=== PATIENT | female | born 1965 | race African-American/Black ===

== ENCOUNTER 2019-08-14 13:44 | Emergency (ER) | payer OTHER ==
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
[2019-08-14 17:26] LABS: ABS Eosinophils 0.3 10^3/ul (0-0.6); ABS Lymphocytes 1.3 10^3/ul (1.0-4.8); ABS Monocytes 0.8 10^3/ul (0-0.8); ABS Neutrophils 5.5 10^3/ul (1.5-7.7); Eosinophil % 3.3 %; Hematocrit 28 % (35-47); Hemoglobin 9.4 g/dL (12.0-16.0); Lymphocyte % 16.3 %; Mean Corpuscular HGB Conc 34 g/dL (31-36); Mean Corpuscular Hemoglobin 31 pg (27-31); Mean Corpuscular Volume 92 fL (80-97); Mean Platelet Volume 7.3 fL (7.4-10.4); Nucleated Red Blood Cells % 0.1; Platelet Count 337 10^3/uL (150-450); Red Blood Count 3.05 10^6 /uL (3.70-4.87); Red Cell Distribution Width 14 % (10-15); White Blood Count 7.8 10^3/uL (3.5-10.8)
[2019-08-14 17:32] LABS: INR 0.98 (0.82-1.09)
[2019-08-14 17:59] LABS: Albumin 3.9 g/dL (3.2-5.2); Total Bilirubin 0.3 mg/dL (0.2-1.0)
[2019-08-14 18:05] LABS: Albumin/Globulin Ratio 1.5 (1-3); EGFR African American 98.2 (>60); EGFR Non-African American 81.1 (>60); Globulin 2.6 g/dL (2-4); Total Protein 6.5 g/dL (6.4-8.9)
--- NOTE | 2019-08-14 19:17 | ED ---
Lower Extremity - HPI Summary HPI Summary: 53 year old female presents with bilaterally swelling of legs for the past couple days. She states her left leg is more swollen and more painful. She has been using compression socks on her legs. Denies any injury. She denies any numbness or tingling. No chest pain or shortness of breath. No family history of blood clots. She is a resident of [facility]. She denies any recent travel. she has bruising that she noticed of the area. - History of Current Complaint Chief Complaint: EDExtremityLower Stated Complaint: SWOLLEN LEGS PER PT Time Seen by Provider: 08/14/19 16:56 Pain Intensity: 8 - Allergies/Home Medications Allergies/Adverse Reactions: Allergies Allergy/AdvReac Type Severity Reaction Status Date / Time Penicillins Allergy Hives Verified 08/14/19 13:53 Home Medications: Home Medications Buprenorp/Nalox 8-2 MG FILM [Suboxone 8 mg-2 mg Sl Film] 2 unit PO DAILY [History Confirmed 08/14/19] Doxepin HCl 100 mg PO QPM 08/14/19 [History Confirmed 08/14/19] Escitalopram Oxalate [Lexapro 10 mg] 10 mg PO DAILY 08/14/19 [History Confirmed 08/14/19] Fluticasone NASAL SPRAY 50MCG* [Flonase NASAL SPRAY 50MCG*] 2 spray BOTH NARES DAILY 08/14/19 [History Confirmed 08/14/19] Gabapentin 400 mg PO TID 08/14/19 [History Confirmed 08/14/19] Lisinopril [Zestril] 10 mg PO DAILY 08/14/19 [History Confirmed 08/14/19] Melatonin 5 mg PO QPM PRN 08/14/19 [History Confirmed 08/14/19] Mirtazapine TAB* [Remeron TAB*] 30 mg PO BEDTIME 08/14/19 [History Confirmed ] Naproxen [Naproxen 500 mg tab] 500 mg PO BID PRN 08/14/19 [History Confirmed ] Nicotine GUM* 4MG FRUIT FLAVOR [Nicotine GUM*] 4 mg PO DAILY PRN 08/14/19 [ History Confirmed 08/14/19] Risperidone [Risperdal] 1 mg PO BEDTIME 08/14/19 [History Confirmed 08/14/19] hydrOXYzine HCL [Hydroxyzine HCl] 50 mg PO TID PRN 08/14/19 [History Confirmed 08/14/19] PMH/Surg Hx/FS Hx/Imm Hx Endocrine/Hematology History: Denies: Hx Anticoagulant Therapy Respiratory History: Denies: Hx Asthma Infectious Disease History: No Infectious Disease History: Denies: Traveled Outside the [place] in Last 30 Days - Family History Known Family History: Negative: Blood Disorder - Social History Alcohol Use: None Substance Use Type: Reports: None Smoking Status (MU): Former Smoker Review of Systems Negative: Fever Negative: Chest Pain Negative: Shortness Of Breath Positive: Edema - bilateral legs Positive: Bruising All Other Systems Reviewed And Are Negative: Yes Physical Exam Triage Information Reviewed: Yes Vital Signs On Initial Exam: Initial Vitals Temp Pulse Resp BP Pulse Ox 98.3 F 102 19 123/75 95 08/14/19 13:46 08/14/19 13:46 08/14/19 13:46 08/14/19 13:46 08/14/19 13:46 Vital Signs Reviewed: Yes Appearance: Positive: Well-Appearing Skin: Positive: Warm, Dry Head/Face: Positive: Normal Head/Face Inspection Eyes: Positive: Normal, Conjunctiva Clear ENT: Positive: Pharynx normal Respiratory/Lung Sounds: Positive: Clear to Auscultation, Breath Sounds Present Cardiovascular: Positive: Normal, RRR Musculoskeletal: Positive: Strength/ROM Intact - legs, Edema Left, Edema Right, Other - good pulses, trace bruising noted to legs, tenderness entire bilateral legs Neurological: Positive: Normal Psychiatric: Positive: Normal Procedures - Sedation Patient Received Moderate/Deep Sedation with Procedure: No Diagnostics - Vital Signs Vital Signs Temp Pulse Resp BP Pulse Ox 08/14/19 19:05 120/68 08/14/19 18:14 90 93 08/14/19 18:06 89 117/74 93 08/14/19 17:36 90 93 08/14/19 16:56 94 95 08/14/19 16:03 98.1 F 100 16 122/68 92 08/14/19 15:39 98.3 F 90 18 106/79 93 08/14/19 13:46 98.3 F 102 19 123/75 95 - Laboratory Lab Results: Lab Results 02/16/20 02/16/20 02/16/20 Range/Units 17:20 17:20 17:20 WBC 7.8 (3.5-10.8) 10^3/uL RBC 3.05 L (3.70-4.87) 10^6 /uL Hgb 9.4 L (12.0-16.0) g/dL Hct 28 L (35-47) % MCV 92 (80-97) fL MCH 31 (27-31) pg MCHC 34 (31-36) g/dL RDW 14 (10-15) % Plt Count 337 (150-450) 10^3/uL MPV 7.3 L (7.4-10.4) fL Neut % (Auto) 69.9 % Lymph % (Auto) 16.3 % Metcalfe % (Auto) 10.0 % Eos % (Auto) 3.3 % Baso % (Auto) 0.5 % Absolute Neuts (auto) 5.5 (1.5-7.7) 10^3/ul Absolute Lymphs (auto) 1.3 (1.0-4.8) 10^3/ul Absolute Monos (auto) 0.8 (0-0.8) 10^3/ul Absolute Eos (auto) 0.3 (0-0.6) 10^3/ul Absolute Basos (auto) 0.0 (0-0.2) 10^3/ul Absolute Nucleated RBC 0.0 10^3/ul Nucleated RBC % 0.1 INR (Anticoag Therapy) 0.98 (0.82-1.09) Sodium 140 (135-145) mmol/L Potassium 4.0 (3.5-5.0) mmol/L Chloride 106 (101-111) mmol/L Carbon Dioxide 28 (22-32) mmol/L Anion Gap 6 (2-11) mmol/L BUN 12 (6-24) mg/dL Creatinine 0.75 (0.51-0.95) mg/dL Est GFR ( Amer) 98.2 (>60) Est GFR (Non-Af Amer) 81.1 (>60) BUN/Creatinine Ratio 16.0 (8-20) Glucose 89 (70-100) mg/dL Calcium 9.0 (8.6-10.3) mg/dL Total Bilirubin 0.30 (0.2-1.0) mg/dL AST 19 (13-39) U/L ALT 17 (7-52) U/L Alkaline Phosphatase 83 (34-104) U/L B-Natriuretic Peptide (<=100) pg/mL Total Protein 6.5 (6.4-8.9) g/dL Albumin 3.9 (3.2-5.2) g/dL Globulin 2.6 (2-4) g/dL Albumin/Globulin Ratio 1.5 (1-3) /16 Range/Units 17:20 WBC (3.5-10.8) 10^3/uL RBC (3.70-4.87) 10^6 /uL Hgb (12.0-16.0) g/dL Hct (35-47) % MCV (80-97) fL MCH (27-31) pg MCHC (31-36) g/dL RDW (10-15) % Plt Count (150-450) 10^3/uL MPV (7.4-10.4) fL Neut % (Auto) % Lymph % (Auto) % Metcalfe % (Auto) % Eos % (Auto) % Baso % (Auto) % Absolute Neuts (auto) (1.5-7.7) 10^3/ul Absolute Lymphs (auto) (1.0-4.8) 10^3/ul Absolute Monos (auto) (0-0.8) 10^3/ul Absolute Eos (auto) (0-0.6) 10^3/ul Absolute Basos (auto) (0-0.2) 10^3/ul Absolute Nucleated RBC 10^3/ul Nucleated RBC % INR (Anticoag Therapy) (0.82-1.09) Sodium (135-145) mmol/L Potassium (3.5-5.0) mmol/L Chloride (101-111) mmol/L Carbon Dioxide (22-32) mmol/L Anion Gap (2-11) mmol/L BUN (6-24) mg/dL Creatinine (0.51-0.95) mg/dL Est GFR ( Amer) (>60) Est GFR (Non-Af Amer) (>60) BUN/Creatinine Ratio (8-20) Glucose (70-100) mg/dL Calcium (8.6-10.3) mg/dL Total Bilirubin (0.2-1.0) mg/dL AST (13-39) U/L ALT (7-52) U/L Alkaline Phosphatase (34-104) U/L B-Natriuretic Peptide 23 (<=100) pg/mL Total Protein (6.4-8.9) g/dL Albumin (3.2-5.2) g/dL Globulin (2-4) g/dL Albumin/Globulin Ratio (1-3) Result Diagrams: 08/14/19 17:20 08/14/19 17:20 Lab Statement: Any lab studies that have been ordered have been reviewed, and results considered in the medical decision making process. - Ultrasound No standard instances Ultrasound Interpretation Completed By: Radiologist Summary of Ultrasound Findings: IMPRESSION: 1. No evidence of deep vein thrombosis. 2. Pulsatile venous flow of uncertain clinical significance. Lower Extremity Course/Dx - Course Course Of Treatment: 53 year old female presents with bilaterally swelling of legs for the past couple days. She states her left leg is more swollen and more painful. She has been using compression socks on her legs. Denies any injury. She denies any numbness or tingling. No chest pain or shortness of breath. No family history of blood clots. She is a resident of [facility]. She denies any recent travel. she has bruising that she noticed of the area. On exam has edema noted bilaterally. has trace ecchymosis to leg. Ultrasound of left leg shows no DVT. hemoglobin is 9.4. wbc normal. will start on iron. will have follow up with primary. Patient understands and agrees with the plan. - Diagnoses Differential Diagnosis/HQI/PQRI: Positive: DVT, Sprain, Strain Provider Diagnoses: Edema of both legs, Anemia Discharge ED - Sign-Out/Discharge Documenting (check all that apply): Patient Departure - Discharge Plan Condition: Good Disposition: HOME Prescriptions: Ferrous Fumarate 89 mg PO DAILY #10 tablet Patient Education Materials: Leg Edema (ED) Referrals: No Primary Care Phys,NOPCP [Primary Care Provider] - Additional Instructions: elevate, ice use compression socks take iron daily take tyenlol every 6 hours for pain follow up with primary within 5 days can use elevator instead of stairs Return to ED if develop any new or worsening symptoms - Billing Disposition and Condition Condition: GOOD Disposition: Home - Attestation Statements Provider Attestation: I was available for consultation for this patient. I did not evaluate the patient or participate in any medical decision making or disposition decisions unless I am specifically named in the chart as having consulted on the patient. If I have consulted on the patient, please see my own ED note on the patient encounter. Shanthi Gomes MD
[2019-08-14 20:08] VITALS: BP 114/85
== END 2019-08-14 20:07 | disposition home or self-care (01) ==
LOC: ED 13:44
DX: R60.0 Localized edema (principal); D64.9 Anemia, unspecified; Z87.891 Personal history of nicotine dependence; Z79.899 Other long term (current) drug therapy; Z88.0 Allergy status to penicillin
CPT/HCPCS: 36415; 80053; 83880; 85025; 85610; 99283

== ENCOUNTER 2019-08-21 11:24 | Emergency (ER) | payer OTHER ==
--- NOTE | 2019-08-21 12:09 | ED ---
Lower Extremity - HPI Summary HPI Summary: 53 y/o female presented to [facility] for bilat LE edema present for at least a week. She was seen 7 days ago in the ER for similar sx and since then has not seen improvement. At the time, she was told she was anemic and had no blood clots according to [place]. Today she woke up with ankle pain and took about 15 minutes to get up. She claims to have gained about 7lbs in fluid. Pt notes hx of asthma and HTN, but denies hx of liver issues, kidney issues, or diabetes. She takes lisinopril and suboxone, and is in rehab for heroin use. Home Medications Medication Instructions Recorded Confirmed Type Buprenorp/Nalox 8-2 MG FILM 2 unit PO DAILY 08/14/19 08/14/19 History [Suboxone 8 mg-2 mg Sl Film] Doxepin HCl 100 mg PO QPM 08/14/19 08/14/19 History Escitalopram Oxalate [Lexapro 10 10 mg PO DAILY 08/14/19 08/14/19 History mg] Ferrous Fumarate 89 mg PO DAILY #10 tablet 08/14/19 Rx Fluticasone NASAL SPRAY 50MCG* 2 spray BOTH NARES DAILY 08/14/19 08/14/19 History [Flonase NASAL SPRAY 50MCG*] Gabapentin 400 mg PO TID 08/14/19 08/14/19 History Lisinopril [Zestril] 10 mg PO DAILY 08/14/19 08/14/19 History Melatonin 5 mg PO QPM PRN 08/14/19 08/14/19 History Mirtazapine TAB* [Remeron TAB*] 30 mg PO BEDTIME 08/14/19 08/14/19 History Naproxen [Naproxen 500 mg tab] 500 mg PO BID PRN 08/14/19 08/14/19 History Nicotine GUM* 4MG FRUIT FLAVOR 4 mg PO DAILY PRN 08/14/19 08/14/19 History [Nicotine GUM*] Risperidone [Risperdal] 1 mg PO BEDTIME 08/14/19 08/14/19 History hydrOXYzine HCL [Hydroxyzine HCl] 50 mg PO TID PRN 08/14/19 08/14/19 History - History of Current Complaint Chief Complaint: EDExtremityLower Stated Complaint: SWOLLEN LEGS PER PT Time Seen by Provider: 08/21/19 11:32 Hx Obtained From: Patient Onset of Pain: Days Onset/Duration: Weeks - 1 Severity Currently: Severe Pain Intensity: 8 Pain Scale Used: 0-10 Numeric Timing: Constant Associated Signs And Symptoms: Positive: Swelling, Other - ankle pain - Allergies/Home Medications Allergies/Adverse Reactions: Allergies Allergy/AdvReac Type Severity Reaction Status Date / Time Penicillins Allergy Hives Verified 08/21/19 11:32 Home Medications: Home Medications Buprenorp/Nalox 8-2 MG FILM [Suboxone 8 mg-2 mg Sl Film] 2 unit PO DAILY [History Confirmed 08/14/19] Doxepin HCl 100 mg PO QPM 08/14/19 [History Confirmed 08/14/19] Escitalopram Oxalate [Lexapro 10 mg] 10 mg PO DAILY 08/14/19 [History Confirmed 08/14/19] Ferrous Fumarate 89 mg PO DAILY #10 tablet 08/14/19 [Rx] Fluticasone NASAL SPRAY 50MCG* [Flonase NASAL SPRAY 50MCG*] 2 spray BOTH NARES DAILY 08/14/19 [History Confirmed 08/14/19] Gabapentin 400 mg PO TID 08/14/19 [History Confirmed 08/14/19] Lisinopril [Zestril] 10 mg PO DAILY 08/14/19 [History Confirmed 08/14/19] Melatonin 5 mg PO QPM PRN 08/14/19 [History Confirmed 08/14/19] Mirtazapine TAB* [Remeron TAB*] 30 mg PO BEDTIME 08/14/19 [History Confirmed ] Naproxen [Naproxen 500 mg tab] 500 mg PO BID PRN 08/14/19 [History Confirmed ] Nicotine GUM* 4MG FRUIT FLAVOR [Nicotine GUM*] 4 mg PO DAILY PRN 08/14/19 [ History Confirmed 08/14/19] Risperidone [Risperdal] 1 mg PO BEDTIME 08/14/19 [History Confirmed 08/14/19] hydrOXYzine HCL [Hydroxyzine HCl] 50 mg PO TID PRN 08/14/19 [History Confirmed 08/14/19] Furosemide TAB* [Lasix TAB*] 40 mg PO DAILY 15 Days #15 tab 08/21/19 [Rx] PMH/Surg Hx/FS Hx/Imm Hx Endocrine/Hematology History: Denies: Hx Anticoagulant Therapy Respiratory History: Denies: Hx Asthma Infectious Disease History: No Infectious Disease History: Denies: Traveled Outside the [place] in Last 30 Days - Family History Known Family History: Negative: Blood Disorder - Social History Alcohol Use: None Substance Use Type: Reports: Other Substance Use Comment - Amount & Last Used: suboxone Smoking Status (MU): Former Smoker Review of Systems Negative: Fever - vitals show temp at 98.7F Positive: Edema - bilat LE All Other Systems Reviewed And Are Negative: Yes Physical Exam - Summary Physical Exam Summary: Constitutional: Well-developed, Well-nourished, Alert. (-) Distressed Skin: Warm, Dry HENT: Normocephalic; Atraumatic Eyes: Conjunctiva normal Neck: Musculoskeletal ROM normal neck. (-) JVD, (-) Stridor, (-) Tracheal deviation Cardio: Rhythm regular, rate normal, Heart sounds normal; Intact distal pulses; The pedal pulses are 2+ and symmetric. Radial pulses are 2+ and symmetric. (-) Murmur Pulmonary/Chest wall: Effort normal. (-) Respiratory distress, (-) Wheezes, (-) Rales Abd: Soft, (-) tenderness, (-) Distension, (-) Guarding, (-) Rebound Musculoskeletal: (+) Bilat LE pitting edema Lymph: (-) Cervical adenopathy Neuro: Alert, Oriented x3 Psych: Mood and affect Normal Triage Information Reviewed: Yes Vital Signs On Initial Exam: Initial Vitals Temp Pulse Resp BP Pulse Ox 98.7 F 109 19 136/80 93 08/21/19 11:26 08/21/19 11:26 08/21/19 11:26 08/21/19 11:26 08/21/19 11:26 Vital Signs Reviewed: Yes Procedures - Sedation Patient Received Moderate/Deep Sedation with Procedure: No Diagnostics - Vital Signs Vital Signs Temp Pulse Resp BP Pulse Ox 08/21/19 11:26 98.7 F 109 19 136/80 93 - Laboratory Result Diagrams: 08/21/19 12:12 08/21/19 12:12 Lab Statement: Any lab studies that have been ordered have been reviewed, and results considered in the medical decision making process. - EKG 1231 Cardiac Rate: Tachycardia EKG Rhythm: Sinus Tachycardia Summary of EKG Findings: Sinus tachycardia at 99bpm. No ischemic changes. This EKG was reviewed and interpreted by Dr. Valerio. Lower Extremity Course/Dx - Course Course Of Treatment: Patient's symptoms consistent with peripheral edema. No evidence of heart, liver, or renal failure. Patient urged to wear compression stockings and elevate her legs while at rest as well as consider sleeping with a pillow under her legs. Patient given prescription for Lasix and encouraged to follow up with PCP the next several days. Patient comfortable with discharge. - Diagnoses Provider Diagnoses: Peripheral edema Discharge ED - Sign-Out/Discharge Documenting (check all that apply): Patient Departure - dc - Discharge Plan Condition: Stable Disposition: HOME Prescriptions: Furosemide TAB* [Lasix TAB*] 40 mg PO DAILY 15 Days #15 tab Patient Education Materials: Leg Edema (ED) Referrals: [facility] [Outside] Additional Instructions: Follow up with your primary care provider in 2-3 days. If you experience new or worsening symptoms please return to the ER. - Billing Disposition and Condition Condition: STABLE Disposition: Home - Attestation Statements Document Initiated by Anita: Yes Documenting Scribe: Tommie Westfall Provider For Whom Anita is Documenting (Include Credential): Edward Valerio DO Scribe Attestation: Tommie Kwong scribed for Edward Valerio DO on 08/21/19 at 1431. Scribe Documentation Reviewed: Yes Provider Attestation: The documentation as recorded by the Tommie alexander accurately reflects the service I personally performed and the decisions made by Edward lombardo DO Status of Scrpresley Document: Viewed
[2019-08-21 12:19] LABS: ABS Basophils 0.1 10^3/ul (0-0.2); ABS Eosinophils 0.2 10^3/ul (0-0.6); ABS Lymphocytes 1.5 10^3/ul (1.0-4.8); ABS Monocytes 0.8 10^3/ul (0-0.8); ABS Neutrophils 2.9 10^3/ul (1.5-7.7); Eosinophil % 4.2 %; Hematocrit 29 % (35-47); Hemoglobin 9.5 g/dL (12.0-16.0); Lymphocyte % 27.7 %; Mean Corpuscular HGB Conc 33 g/dL (31-36); Mean Corpuscular Hemoglobin 30 pg (27-31); Mean Corpuscular Volume 91 fL (80-97); Mean Platelet Volume 7.5 fL (7.4-10.4); Nucleated Red Blood Cells % 0.1; Platelet Count 340 10^3/uL (150-450); Red Blood Count 3.18 10^6 /uL (3.70-4.87); Red Cell Distribution Width 14 % (10-15); White Blood Count 5.6 10^3/uL (3.5-10.8)
[2019-08-21 12:35] LABS: Albumin 3.6 g/dL (3.2-5.2); Calcium 8.7 mg/dL (8.6-10.3); Potassium 4.2 mmol/L (3.5-5.0); Total Bilirubin 0.3 mg/dL (0.2-1.0)
[2019-08-21 12:41] LABS: Albumin/Globulin Ratio 1.3 (1-3); BUN/Creatinine Ratio 13.3 (8-20); EGFR African American 87.4 (>60); EGFR Non-African American 72.2 (>60); Globulin 2.7 g/dL (2-4); Total Protein 6.3 g/dL (6.4-8.9)
[2019-08-21] MEDS ORDERED: Furosemide TAB* 40 MG PO ONE (12:51)
[2019-08-21 13:09] VITALS: BP 118/82
== END 2019-08-21 13:08 | disposition home or self-care (01) ==
LOC: ED 11:24
DX: R60.9 Edema, unspecified (principal); M25.572 Pain in left ankle and joints of left foot; M25.571 Pain in right ankle and joints of right foot; J45.909 Unspecified asthma, uncomplicated; I10 Essential (primary) hypertension; Z79.899 Other long term (current) drug therapy; Z88.0 Allergy status to penicillin; Z87.891 Personal history of nicotine dependence
CPT/HCPCS: 36415; 80053; 83880; 85025; 93005; 99282; A9270-GY